=== PATIENT | male | born 1970 | race Caucasian/White ===

== ENCOUNTER 2019-11-16 19:06 | Emergency (ER) | payer MEDICAID ==
--- NOTE | 2019-11-16 19:16 | Emergency Department Record ---
History of Present Illness - General Chief complaint: Pain Stated complaint: LT KNEE PAIN Time Seen by Provider: 11/16/19 19:11 Source: Patient Mode of Arrival: Ambulatory Limitations: No limitations - History of Present Illness Initial comments: 49 yo male presents to ED for evaluation of increased swelling to the left knee following TKA 6 days ago performed at [facility] by Dr. Garcia. Patient's visiting nurse evaluated the patient today, recommended [id number] in the ED for potential DVT. Patient denies drainage from his wound site, fevers, chills, or redness at his surgical site. Patient is not currently taking anticoagulation medication other than ASA 324 mg daily. Patient denies previous history of DVT/PE. Patient denies chest discomfort/pain symptoms. MD Complaint: Extremity swelling, Joint pain, Joint swelling -: Days(s) Location: Left, Knee -: Yes Arthralgia Quality: Aching Consistency: Constant Improves with: Nothing Worsens with: Nothing - Related Data Home Medications Medication Instructions Recorded Confirmed Last Taken Aspirin [Ecotrin] 325 mg PO BID 11/16/19 11/16/19 11/16/19 Meloxicam 7.5 mg PO DAILY 11/16/19 11/16/19 11/16/19 Tramadol HCl 50 mg PO DAILY 11/16/19 11/16/19 11/16/19 Allergies Allergy/AdvReac Type Severity Reaction Status Date / Time Penicillins Allergy Intermediate Hives Unverified 10/26/19 08:26 Review of Systems Constitutional: Denies: Chills, Fever, Malaise, Night sweats Eyes: Denies: Eye discharge, Eye pain ENT: Denies: Congestion, Ear pain, Epistaxis Respiratory: Denies: Cough, Dyspnea Cardiovascular: Denies: Chest pain, Dyspnea on exertion Endocrine: Denies: Fatigue, Heat or cold intolerance Gastrointestinal: Denies: Abdominal pain, Nausea, Vomiting Genitourinary: Denies: Incontinence, Retention Musculoskeletal: Reports: Myalgia. Denies: Arthralgia, Back pain Skin: Reports: Bruising. Denies: Change in color, Change in hair/nails Neurological: Denies: Abnormal gait, Confusion, Headache, Numbness, Tingling, Tremors Psychiatric: Denies: Anxiety Hematological/Lymphatic: Denies: Anemia, Blood Clots Physical Exam - General General Appearance: Alert, Oriented x3, Cooperative, Mild distress Limitations: No limitations - Head Head exam: Atraumatic, Normocephalic, Normal inspection Head exam detail: negative: Abrasion, Contusion, Garsia's sign, General tenderness, Hematoma - Eye Eye exam: Normal appearance. negative: Conjunctival injection, Periorbital swelling, Periorbital tenderness, Scleral icterus - ENT Ear exam: negative: Auricular hematoma, Auricular trauma Nasal Exam: negative: Active bleeding, Discharge, Dried blood, Foreign body, Sinus tenderness Mouth exam: negative: Drooling, Laceration, Muffled voice, Tongue elevation - Neck Neck exam: Normal inspection. negative: Tenderness, Thyromegaly - Respiratory Respiratory exam: Normal lung sounds bilaterally. negative: Respiratory distress, Rhonchi, Stridor, Wheezes - Cardiovascular Cardiovascular Exam: Regular rate, Normal rhythm, Normal heart sounds - GI/Abdominal GI/Abdominal exam: Soft. negative: Distended, Rebound, Rigid, Tenderness - Rectal Rectal exam: Deferred - exam: Deferred - Extremities Extremities exam: Calf tenderness, Pedal edema, Tenderness, Other (Diffuse STS and edema to the LLE, ecchymosis present, skin surrounding surgical site appears clean, dry, intact without evidence for infection.) - Back Back exam: Denies: CVA tenderness (R), CVA tenderness (L) - Neurological Neurological exam: Alert, Normal gait, Oriented X3 - Psychiatric Psychiatric exam: Normal affect, Normal mood - Skin Skin exam: Normal color. negative: Abrasion Type of lesion: negative: abrasion Course - Reevaluation(s) Reevaluation #1: 11/16/19 19:53 Laboratory studies were reviewed and appear grossly unremarkable for an acute process except for the following: D-Dimer 4.45 Reevaluation #2: 11/16/19 20:00 Case was discussed with Dr. Sears at [facility], will accept patient for US doppler of the lower extremity. Patient appears stable for transfer by private car (SO will be driving him). Medical Decision Making - Lab Data Result diagrams: 11/16/19 19:18 11/16/19 19:18 Disposition Disposition: Transfer Clinical Impression: Lower extremity edema Disposition: Acute Care Hospital Transfer Transfer To: [facility] Reason For Transfer: US lower extremity Accepting Physician: Renu Time Discussed w/Accepting Physician: 20:01 Condition: (2) Stable Forms: Patient Portal Access Time of Disposition: 20:01 Quality - Quality Measures Quality Measures: N/A - Blood Pressure Screening Does Patient Have Any of the Following: No Blood Pressure Classification: Hypertensive Reading Systolic Measurement: 130 Diastolic Measurement: 90 Screening for High Blood Pressure: < First Hypertensive BP, F/U Documented > [G8950] First Hypertensive Follow-up Interventions: Referral to alternative/primary care provider.
[2019-11-16 19:24] LABS: HEMATOCRIT 41.4 % (42.0-52.0); HEMOGLOBIN 13.6 gm/dl (14.0-18.0); MEAN CELL VOLUME 90.6 fl (81-97); MEAN CORPUSCULAR HGB CONC 32.9 g/dl (32-36); MEAN PLATELET VOLUME 9.7 fl (7.4-10.4); PLATELET COUNT 198 K/uL (130-400); RED BLOOD COUNT 4.57 M/uL (4.40-5.70); RED CELL DISTRIBUTION WIDTH 13.9 % (11.5-14.5); WHITE BLOOD COUNT W/O DIFF 10.6 K/uL (4.2-12.2)
[2019-11-16 19:25] LABS: MEAN CORPUSCULAR HEMOGLOBIN 29.7 pg (27-33)
[2019-11-16 19:35] LABS: BLOOD UREA NITROGEN 17 mg/dL (6-20); EST GLOMERULAR FILTRATION RATE > 60 mL/min
[2019-11-16 19:38] LABS: GLUCOSE,RANDOM 109 mg/dL (74-109)
== END 2019-11-16 20:00 | disposition short-term general hospital (02) ==
LOC: ER 19:06
DX: R60.0 Localized edema (principal); M25.562 Pain in left knee; Z96.652 Presence of left artificial knee joint
CPT/HCPCS: 80048; 85027; 85379; 99284

== ENCOUNTER 2019-11-27 10:04 | Emergency (ER) | payer MEDICAID ==
--- NOTE | 2019-11-27 10:28 | Emergency Department Record ---
History of Present Illness - General Stated complaint: NEEDS DOPPLER/RECENT SURGERY Time Seen by Provider: 11/27/19 10:17 Source: Patient Mode of Arrival: Ambulatory Limitations: No limitations - History of Present Illness Initial comments: The patient is here due to L leg swelling. He had a L TKA 17 days ago in [place] by Dr. Goldberg. The patient has been doing well and was at PT today and the L leg was mildly tender so he was sent to the ER for a Doppler test. The patient states the L leg swelling and bruising are much improved since surgery. He was in the ER 11 days ago for a similar issue and had a neg Doppler test at that time. The patient states the L leg has been feeling better recently and the swelling is improved. There is no hx of fever, or chills and there has been no drainage from the surgical wound. MD Complaint: Extremity swelling Onset/Timin -: Week(s) - Related Data Allergies Allergy/AdvReac Type Severity Reaction Status Date / Time Penicillins Allergy Intermediate Hives Verified 11/27/19 10:45 Review of Systems Constitutional: Denies: Chills, Fever Eyes: Denies: Eye discharge ENT: Denies: Congestion Respiratory: Denies: Cough, Dyspnea Past Medical History - SOCIAL HISTORY Smoking Status: Former smoker Drug Use: None - RESPIRATORY Hx Respiratory Disorders: Yes Hx COPD: Yes - CARDIOVASCULAR Hx Cardio Disorders: Yes Hx Chest Pain: Yes Hx Heart Attack: Yes Hx Hypertension: Yes Comment:: HLD - NEURO Hx Neuro Disorders: Yes Hx Neuropathy: Yes - GI Hx GI Disorders: No - Hx Genitourinary Disorders: No - ENDOCRINE Hx Endocrine Disorders: No - MUSCULOSKELETAL Hx Musculoskeletal Disorders: Yes Hx Arthritis: Yes Hx Fibromyalgia: Yes - PSYCH Hx Psych Problems: No - HEMATOLOGY/ONCOLOGY Hx Hematology/Oncology Disorders: No Family Medical History Family Hx Comment (NOT TO BE USED IN PLACE OF ITEMS BELOW): denies Physical Exam - General General Appearance: Alert, Oriented x3, Cooperative, No acute distress - Head Head exam: Atraumatic - Eye Eye exam: Normal appearance - Neck Neck exam: Normal inspection, Full ROM. negative: Tenderness - Respiratory Respiratory exam: Normal lung sounds bilaterally. negative: Respiratory distress - Cardiovascular Cardiovascular Exam: Regular rate, Normal rhythm, Normal heart sounds - Extremities Extremities exam: Joint swelling (mild L knee.), Pedal edema (trace L only. ), Tenderness (There is mild L knee tenderness but no warmth. The L TKA appears to be healing well.). negative: Normal inspection (There is mild L leg swelling but no warmth. The surgical scar is well healed and without erythema or drainage. The patient does have slight erythema to the L lower leg laterally but states it is much improved over the last 2 weeks. ), Full ROM Course Vital Signs 11/27/19 10:12 Temperature 97.7 F Pulse Rate [ 79 Pulse Ox Probe] Respiratory 20 Rate Blood Pressure 143/88 [Left Arm] Pulse Ox 98 - Reevaluation(s) Reevaluation #1: The patient is doing very well at this time and denies any new pain or any issues. I did discuss the neg Leg Doppler with the patient. He has an appointment with his Surgeon on Saturday and is encouraged to keep it. 11/27/19 12:06 Medical Decision Making - Data Complexity MDM Data: X-Ray Ordered and/or Reviewed - Radiology Data Radiology results: Report reviewed (Venous Doppler: Neg.) Disposition Disposition: Discharge Clinical Impression: Lower extremity edema Disposition: Home, Self-Care Condition: (2) Stable Instructions: Leg Edema (ED) Additional Instructions: Please continue your post operative instructions and see your doctor on Saturday as planned. Forms: Patient Portal Access Time of Disposition: 12:07 Quality - Quality Measures Quality Measures: N/A - Blood Pressure Screening View Details: Yes Does Patient Have Any of the Following: No Blood Pressure Classification: Pre-Hypertensive BP Reading Systolic Measurement: 143 Diastolic Measurement: 88 Screening for High Blood Pressure: < Pre-Hypertensive BP, F/U Documented > [G8950] Pre-Hypertensive Follow-up Interventions: Referral to alternative/primary care provider.
--- NOTE | 2019-11-27 12:01 | ULTRASOUND REPORT ---
EXAMINATION: Left Lower Extremity Venous Duplex Doppler Ultrasound EXAM DATE: 11/27/2019 11:37 AM TECHNIQUE: Real-time B-mode imaging with and without compression was used to evaluate the left lower extremity for deep venous thrombosis (DVT). Duplex Doppler with color and spectral Doppler was used . INDICATION: L leg swelling S/P surgery COMPARISON: None FINDINGS: Left Common Femoral Vein: No DVT. Left Femoral Vein: No DVT. Left Popliteal Vein: No DVT. Left Proximal Deep Femoral Vein: No DVT. Left Posterior Tibial Veins: No DVT. Left Peroneal Veins: No DVT. Left proximal Great Saphenous Vein: No thrombus. Duplex Doppler: Spectral Doppler waveforms show normal respiratory phasicity in the common femoral vein. Additional Findings: None. IMPRESSION: There is no deep venous thrombosis in the visualized deep veins of the left lower extremity. Dictated by: Bobby Christianson DO on 11/27/2019 11:57 AM. .
== END 2019-11-27 12:15 | disposition home or self-care (01) ==
LOC: ER 10:04
DX: M25.462 Effusion, left knee (principal); M25.562 Pain in left knee; Z96.652 Presence of left artificial knee joint; I10 Essential (primary) hypertension; I25.2 Old myocardial infarction; Z87.891 Personal history of nicotine dependence
CPT/HCPCS: 99283